=== PATIENT | female | born 1955 | race African-American/Black ===

== ENCOUNTER 2018-12-26 06:28 | Inpatient (IN) | payer MEDICAID ==
[~2018-12-26] VITALS: Ht 157.5 cm; Wt 102.1 kg
[~2018-12-26 06:28] MED LIST: ATEN50TA PO; ATOR40TA70 PO; LISI-604 PO
[2018-12-26 07:15] LABS: CHLORIDE 109 mEq/L (98-107)
[2018-12-26 07:18] LABS: PROTHROMBIN TIME 10.6 sec (9.6-11.0)
[2018-12-26 07:27] LABS: BASOPHILS % 0.2 % (0.0-2.0); EOSINOPHILS % 0.2 % (0.0-5.0); HEMATOCRIT. 28.4 % (36.0-48.0); HEMOGLOBIN. 9.8 g/dL (12.0-16.0); MEAN CORPUSCULAR HEMOGLOBIN 30.8 pg (28.0-32.0); MEAN CORPUSCULAR VOLUME 89.4 fL (81.0-99.0); MEAN PLATELET VOLUME 7.7 fl (7.4-10.4); MONOCYTES % 8.6 % (2.0-8.0); PLATELET 135 x1000/uL (130-400); RED BLOOD CELL COUNT 3.18 mill/uL (4.2-5.4); RED CELL DISTRIBUTION WIDTH 14.9 % (11.6-14.6)
[2018-12-26 11:49] VITALS: BP 115/83
[2018-12-26] MEDS ORDERED: ACETAMINOPHEN 325MG TABLET PO PRN (12:15)
[2018-12-26] MEDS ORDERED: ONDANSETRON HCL 4MG/2ML INJ IV PRN (12:15)
[2018-12-26] MEDS ORDERED: CLONIDINE 0.1MG TABLET PO PRN (12:15)
[2018-12-26] MEDS ORDERED: HYDROMORPHONE HCL/PF 2MG/ML CPJ IV PRN (12:15)
[2018-12-26 12:30] VITALS: BP 115/83
[2018-12-26] MEDS: FAMOTIDINE 20MG/2ML VIAL IV SCH (13:27)
[2018-12-26] MEDS: DEXT 5%/0.45% NACL KCL 10MEQ/L 1,000 ML IV SCH (16:39)
[2018-12-26 20:00] VITALS: BP 127/83
[2018-12-26 21:20] LABS: BASOPHILS % 0.2 % (0.0-2.0); EOSINOPHILS % 0.3 % (0.0-5.0); HEMATOCRIT. 23.8 % (36.0-48.0); HEMOGLOBIN. 8.1 g/dL (12.0-16.0); LYMPHOCYTES % 27.5 % (20.0-50.0); MEAN CORPUSCULAR HEMOGLOBIN 30.9 pg (28.0-32.0); MEAN CORPUSCULAR VOLUME 90.8 fL (81.0-99.0); MEAN PLATELET VOLUME 8.2 fl (7.4-10.4); MONOCYTES % 8.6 % (2.0-8.0); NEUTROPHILS % 63.4 % (40.0-76.0); PLATELET 122 x1000/uL (130-400); RED BLOOD CELL COUNT 2.62 mill/uL (4.2-5.4); RED CELL DISTRIBUTION WIDTH 15.3 % (11.6-14.6)
[2018-12-27] VITALS (10 sets, daily range): BP systolic 99–138; BP diastolic 52–73
[2018-12-27 00:33] LABS: HEMATOCRIT 21.9 % (36.0-48.0); HEMOGLOBIN 7.5 g/dL (12.0-16.0)
[2018-12-27 07:01] LABS: BASOPHILS % 0.5 % (0.0-2.0); EOSINOPHILS % 2.4 % (0.0-5.0); HEMATOCRIT. 21.1 % (36.0-48.0); LYMPHOCYTES % 27.9 % (20.0-50.0); MEAN CORPUSCULAR HEMOGLOBIN 29.8 pg (28.0-32.0); MEAN CORPUSCULAR VOLUME 89.7 fL (81.0-99.0); MONOCYTES % 8.1 % (2.0-8.0); NEUTROPHILS % 61.1 % (40.0-76.0); PLATELET 110 x1000/uL (130-400); RED BLOOD CELL COUNT 2.35 mill/uL (4.2-5.4); RED CELL DISTRIBUTION WIDTH 15.5 % (11.6-14.6)
[2018-12-27 07:42] LABS: CHLORIDE 112 mEq/L (98-107)
[2018-12-27] MEDS: DEXT 5%/0.45% NACL KCL 10MEQ/L 1,000 ML IV SCH ×2 (09:12→14:53)
[2018-12-27] MEDS: FAMOTIDINE 20MG/2ML VIAL IV SCH (09:31)
[2018-12-27 16:24] LABS: HEMATOCRIT 25.8 % (36.0-48.0); HEMOGLOBIN 8.7 g/dL (12.0-16.0)
[2018-12-27] MEDS: ATORVASTATIN CALCIUM 40MG TABLET PO SCH ×2 (21:16→22:29)
[2018-12-28] VITALS: BP 112/48
[2018-12-28 00:15] LABS: HEMATOCRIT 25.5 % (36.0-48.0); HEMOGLOBIN 8.7 g/dL (12.0-16.0)
[2018-12-28 04:00] VITALS: BP 112/54
[2018-12-28 07:18] LABS: BASOPHILS % 0.3 % (0.0-2.0); HEMATOCRIT. 24.1 % (36.0-48.0); HEMOGLOBIN. 8.3 g/dL (12.0-16.0); LYMPHOCYTES % 18.1 % (20.0-50.0); MEAN CORPUSCULAR HEMOGLOBIN 32.4 pg (28.0-32.0); MEAN CORPUSCULAR VOLUME 94.5 fL (81.0-99.0); MONOCYTES % 8.1 % (2.0-8.0); NEUTROPHILS % 71.5 % (40.0-76.0); PLATELET 123 x1000/uL (130-400); RED BLOOD CELL COUNT 2.55 mill/uL (4.2-5.4); RED CELL DISTRIBUTION WIDTH 15.3 % (11.6-14.6)
[2018-12-28 08:17] VITALS: BP 110/64
[2018-12-28 08:25] LABS: CHLORIDE 113 mEq/L (98-107)
[2018-12-28] MEDS: FAMOTIDINE 20MG/2ML VIAL IV SCH (08:53)
[2018-12-28] MEDS: DEXT 5%/0.45% NACL KCL 10MEQ/L 1,000 ML IV SCH (09:00)
[2018-12-28 09:05] VITALS: BP 110/64
[2018-12-28 12:06] VITALS: BP 117/66
[2018-12-28 16:30] VITALS: BP 128/72
== END 2018-12-28 16:45 | disposition home or self-care (01) | DRG 244 ==
LOC: ER 06:28 → 6WST 07:54 → ENRESERV 09:45 → UNDODISIN 12-28 13:30
PROVIDERS: ADMIT Hospitalist; ATTEND Hospitalist
PROC: 30233N1 Transfusion of Nonautologous Red Blood Cells into Peripheral Vein, Percutaneous Approach (ICD-10-PCS; principal; 2018-12-27)
DX: K57.31 Diverticulosis of large intestine without perforation or abscess with bleeding (principal); E43 Unspecified severe protein-calorie malnutrition; D62 Acute posthemorrhagic anemia; I69.353 Hemiplegia and hemiparesis following cerebral infarction affecting right non-dominant side; E66.01 Morbid (severe) obesity due to excess calories; K22.2 Esophageal obstruction; K29.71 Gastritis, unspecified, with bleeding; D25.9 Leiomyoma of uterus, unspecified; I10 Essential (primary) hypertension; K44.9 Diaphragmatic hernia without obstruction or gangrene; E78.5 Hyperlipidemia, unspecified; K29.60 Other gastritis without bleeding; K64.8 Other hemorrhoids; Z68.41 Body mass index [BMI] 40.0-44.9, adult
CPT/HCPCS: 36415; 71045; 78278; 82962; 85014; 85018; 86850; 86900; 86920; 93005; 96374; 99285; A6261; A9560; C1893; J3490; J7050; P9016